=== PATIENT | male | born 1990 | race Two or more races ===

== ENCOUNTER 2024-12-17 07:28 | Emergency (ER) | payer SELFPAY ==
[~2024-12-17] VITALS: Ht 185.4 cm; Wt 97.7 kg
--- NOTE | 2024-12-17 07:51 | ED.PDOC ---
History of Present Illness HPI Comments 34-year-old male came to the ER stating that he was playing with his kids around the pool yesterday when he slipped and fell landed on his left side of his chest. Complaining of left side rib pain. He is unable to ambulate without having pain. Pain is 9/10. Has not taken any medication for the pain. Denies any past medical surgical history. Time Seen by MD: 07:44 Reviewed Notes: Nurses Notes, Medications, Allergies Allergies: Coded Allergies: NO KNOWN ALLERGIES (Unverified , 12/17/24) Home Meds Active Scripts Ibuprofen Micronized (MOTRIN TABLET) 600 Mg Tb, 600 MG PO TID PRN for 3 Days, #9 TAB *Black box warning-NSAIDS can increase risk of IN & hypertension, GI irritation, ulceration, bleed, perferation. Do not use post cardiac surgery. Use short duration/lowest effective dose. Prov:TERRY RAMIREZ MD 12/17/24 Information Source: Patient Mode of Arrival: Ambulatory Severity: Moderate Timing: Hours Duration: Since onset Past Medical History PAST MEDICAL HISTORY: Denies Surgical History: Denies all surgeries Social History Smoker: Non-Smoker Alcohol: Denies ETOH Use Drugs: Denies Drug Use Constitutional: denies: chills, diaphoresis, fatigue, fever, malaise, sweats, weakness, others EENTM: denies: blurred vision, double vision, ear bleeding, ear discharge, ear drainage, ear pain, ear ringing, eye pain, eye redness, hearing loss, mouth pain, mouth swelling, nasal discharge, nose bleeding, nose congestion, nose pain, photophobia, tearing, throat pain, throat swelling, voice changes, others Respiratory: denies: cough, hemoptysis, orthopnea, SOB at rest, shortness of breath, SOB with excertion, stridor, wheezing, others Cardiovascular: denies: chest pain, dizzy spells, diaphoresis, Dyspnea on exertion, edema, irregular heart beat, left arm pain, lightheadedness, palpitations, PND, syncope, others Gastrointestinal: denies: abdomen distended, abdominal pain, blood streaked bowels, constipated, diarrhea, dysphagia, difficulty swallowing, hematemesis, melena, nausea, poor appetite, poor fluid intake, rectal bleeding, rectal pain, vomiting, others Genitourinary: denies: burning, dysuria, flank pain, frequency, hematuria, incontinence, penile discharge, penile sore, pain, testicle pain, testicle swelling, urgency, others Neurological: denies: dizziness, fainting, headache, left sided numbness, left sided weakness, numbness, paresthesia, pre-existing deficit, right sided numbness, right sided weakness, seizure, speech problems, tingling, tremors, weakness, others Musculoskeletal: reports: others (Left side rib pain); denies: back pain, gout, joint pain, joint swelling, muscle pain, muscle stiffness, neck pain Integumetry: denies: bruises, change in color, change in hair/nails, dryness, laceration, lesions, lumps, rash, wounds, others Allergic/Immunocompromised: denies: Difficulty Healing, Frequent Infections, Hives, Itching, others Hematologic/Lymphatic: denies: anemia, blood clots, easy bleeding, easy bruising, swollen glands, others Psychiatric: denies: anxiety, bipolar disorder, depression, hopeless, panic disorder, schizophrenia, sleepless, suicidal, others Physical Exam General Appearance: Moderate Distress HEENT: Normal ENT Inspection, Pharynx Normal, TMs Normal Neck: Full Range of Motion, Non-Tender, Normal, Normal Inspection Respiratory: Chest Non-Tender, Lungs Clear, No Accessory Muscle Use, No Respiratory Distress, Normal Breath Sounds Cardiovascular: No Edema, No JVD, No Murmur, No Gallop, Normal Peripheral Pulses, Regular Rate/Rhythm Breast Exam: Deferred Gastrointestinal: No Organomegaly, Non Tender, No Pulsatile Mass, Normal Bowel Sounds, Soft Genitalia: Deferred Pelvic: Deferred Rectal: Deferred Extremities: No calf tenderness, Normal capillary refill, Normal inspection, Normal range of motion, Non-tender, No pedal edema Musculoskeletal : Apperance: Normal Neurologic: Alert, 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 Was a procedure done?: No Differential Dx Considerations may include: Musculoskeletal pain Muscle strain X-Ray, Labs, Meds, VS Vital Signs Date Time Temp Pulse Resp B/P (MAP) Pulse Ox O2 Delivery O2 Flow Rate FiO2 12/17/24 08:24 98.1 90 18 139/100 (113) 94 98.1 12/17/24 07:52 97.7 101 18 130/84 (99) 98 97.7 Current Medications Medications (Trade) Dose Ordered Sig/Portia Route Start Time Stop Time Status Last Admin Acetaminophen/ Hydrocodone Bitart ([place] 10/325MG Tab) 1 tab ONCE ONCE PO 12/17/24 08:00 12/17/24 08:01 DC 12/17/24 08:26 Ketorolac Tromethamine (Toradol Injection) 60 mg ONCE ONCE IM 12/17/24 08:00 12/17/24 08:01 DC 12/17/24 08:26 [place] [id number] Ph: [phone] DIAGNOSTIC IMAGING Diagnostic Imaging Report : [id number] Signed PATIENT: ROXANN ROLLINS ACCT: [id number] UNIT: [id number] : 1990 LOC: ER ROOM / BED: / AGE / SEX: 34 / M ADM STATUS: REG ER SERVICE ORDERING PHYSICIAN: TERRY RAMIREZ MD PROCEDURE(s): LRIBS - L RIB X RAY REASON: fx ORDER NUMBER(s): [id number], ACCESSION NUMBER(s): [id number] EXAMINATION: XY L RIB X RAY INDICATION: fx COMPARISON: None TECHNIQUE: Frontal view of the chest and 3 views of the left ribs history FINDINGS: No focal consolidation, pleural effusion or significant pneumothorax. Normal cardiomediastinal silhouette. No displaced left rib fracture. IMPRESSION: No acute cardiopulmonary disease. No displaced left rib fracture. ATED BY: ANGELO FELIPE MD DICTATED DATE/TIME: 12/17/24842 SIGNED BY: ANGELO FELIPE MD SIGNED DATE/TIME: 12/17/24842 CC: Patient alert. Status post fall. Vitals stable. Answering all questions. Complaining of rib pain. X-ray of the ribs does not show any acute process. Was given prescription of Motrin. Explained to the patient. Was told to follow up with his primary care physician. Was told to come back if there is any problem. Time of 1ST Reevaluation: 10:55 Reevaluation 1ST: Unchanged Patient Education/Counseling: Diagnosis, Treatment, Prognosis Family Education/Counseling: No Family Present SEPSIS Sepsis Screen Physician Orders L Rib X Ray (12/17/24 07:49) Vital Signs Date Time Temp Pulse Resp B/P (MAP) Pulse Ox O2 Delivery O2 Flow Rate FiO2 12/17/24 08:24 98.1 90 18 139/100 (113) 94 98.1 12/17/24 07:52 97.7 101 18 130/84 (99) 98 97.7 Medications Medications Dose Ordered Sig/Portia Route Start Time Stop Time Status Last Admin Dose Admin Acetaminophen/ Hydrocodone Bitart 1 tab ONCE ONCE PO 12/17/24 08:00 12/17/24 08:01 DC 12/17/24 08:26 Ketorolac Tromethamine 60 mg ONCE ONCE IM 12/17/24 08:00 12/17/24 08:01 DC 12/17/24 08:26 Departure 1 Departure Time of Disposition: 10:56 Impression: Primary Impression: Musculoskeletal pain Disposition: 01 HOME / SELF CARE / HOMELESS Condition: Good e-Prescriptions Ibuprofen Micronized (MOTRIN TABLET) 600 Mg Tb 600 MG PO TID PRN for 3 Days, #9 TAB *Black box warning-NSAIDS can increase risk of IN & hypertension, GI irritation, ulceration, bleed, perferation. Do not use post cardiac surgery. Use short duration/lowest effective dose. Prov: TERRY RAMIREZ MD 12/17/24 Discharged With: Self Critical Care Note Critical Care Time?: No Stability Stability form required: No Heart Score Heart Score: Heart Score Response (Comments) Value History N/A 0 EKG N/A 0 Age N/A 0 Risk Factors N/A 0 Troponin N/A 0 Total 0 I personally scribed for TERRY RAMIREZ MD ([email or web address]) on 12/17/24 at 07:53. Electronically submitted by Negrita Peña ([email or web address]). I personally scribed for TERRY RAMIREZ MD ([email or web address]) on 12/17/24 at 09:07. Electronically submitted by Negrita Peña ([email or web address]). TERRY RAMIREZ MD Dec 17, 2024 07:51
[2024-12-17 08:24] VITALS: BP 139/100; PULSE 90; RESP 18; TEMP 98.1; O2SAT 94
[2024-12-17] MEDS: KETOROLAC TROMETH 60MG/2ML VIAL IM ONE (08:26)
[2024-12-17] MEDS: HYDROcodone-ACET 10/325MG TAB PO ONE (08:26)
--- NOTE | 2024-12-17 08:45 | DVH ---
EXAMINATION: XY L RIB X RAY INDICATION: fx COMPARISON: None TECHNIQUE: Frontal view of the chest and 3 views of the left ribs history FINDINGS: No focal consolidation, pleural effusion or significant pneumothorax. Normal cardiomediastinal silhou ette. No displaced left rib fracture. IMPRESSION: No acute cardiopulmonary disease. No displaced left rib fracture.
[2024-12-17] MEDS ORDERED: IBU600T PO (10:57)
== END 2024-12-17 10:57 | disposition home or self-care (01) ==
LOC: ER 07:28
DX: R07.81 Pleurodynia (principal); Z79.899 Other long term (current) drug therapy; W01.198A Fall on same level from slipping, tripping and stumbling with subsequent striking against other object, initial encounter; Y93.89 Activity, other specified; Y92.89 Other specified places as the place of occurrence of the external cause; Y99.8 Other external cause status
CPT/HCPCS: 71101; 96372; 99283; J1885